=== PATIENT | male | born 1950 | race African-American/Black ===

== ENCOUNTER → 2016-11-24 | Outpatient (CLI) | payer BC ==
--- NOTE | ~2016-11-24 | MR103 ---
[facility] A Service of [facility] & [facility] RADIOLOGY TEXT RESULTS PATIENT: DIDI WILKINS JR [facility] [birth year] UNIT #: [id number] AGE: [address]: BASSAM PALOMO MD SEX: M ORDER DR: [id number] [facility] [address] [place], [place] [address] [id number] O MR#: [id number] #: [id number] NAME: DIDI WILKINS : 1950 SEX: M STUDY DATE/TIME: 11/24/2016 11:37 UNIT: [facility] ROOM: STUDY DESCRIPTION: MR Knee Wo Contrast Lt Attending Physician: Bassam Palomo M.D. Referring Physician: Bassam Palomo M.D. Ordering Physician: Bassam Palomo M.D. Primary Care Physician: Bassam Palomo M.D. MRI CENTER REPORT This report is preliminary unless electronic signature is present. EXAM MRI of the left knee without contrast HISTORY 66-year-old male complains of posterior knee pain x1 year. Feels popping while walking. Increasing pain going up and down stairs. COMPARISON Left knee films 06/2010 TECHNIQUE Multiplanar multiecho imaging was performed of the left knee utilizing a high field magnet dedicated protocol. FINDINGS Examination demonstrates moderately advanced tricompartment osteoarthritis of the knee with marginal osteophytes. Marrow edema noted along the medial tibial plateau and medial femoral condyle corresponding to extensive full-thickness cartilage loss medial compartment. Prominent subarticular osteophyte noted along the posterior aspect lateral femoral condyle. Mild chondromalacia noted lateral compartment. In the patellofemoral compartment, there is moderate grade chondromalacia predominately along the median ridge and extending towards the lateral patellar facet. Trochlear cartilage also demonstrates high-grade chondromalacia lateral femoral trochlea. No normal-appearing medial meniscus identified compatible with an extensive degenerative tear of the medial meniscus. Horizontal cleavage tear noted within the midbody segment and posterior horn of the meniscus. I suspect there has been at least a partial medial meniscectomy accounting for the substantial loss of meniscal volume. In the lateral compartment, the meniscus demonstrates myxoid degeneration but no defined tear. The anterior cruciate ligament is poorly identified and may represent severe STS. [facility] A Service of [facility] & [facility] RADIOLOGY TEXT RESULTS PATIENT: DIDI WILKINS JR LOCATION: [facility] : 48 UNIT #: [id number] AGE: [address]: BASSAM PALOMO MD SEX: M ORDER DR: mucinous degeneration or possibly a chronic tear. Given the lack of additional findings of ACL insufficiency. I suspect this just represents severe mucinous degeneration. Posterior cruciate ligament appears intact. Medial collateral ligament and lateral collateral ligament complex appears normal. Extensor mechanism unremarkable. IMPRESSION 1. Moderately advanced tricompartment osteoarthritis of the knee with medial compartment predominance with extensive full-thickness cartilage loss medial compartment and associated subchondral edema. 2. Morphologic changes in the medial meniscus compatible with a partial meniscectomy with probable horizontal cleavage tear within the midbody segment and posterior horn remnant. 3. 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 Dictated by... Altaf Alberto M.D. THIS IS AN ELECTRONICALLY VERIFIED REPORT Altaf Alberto M.D. at 11/26/2016 5:11 PM MARILIN/lulú TD: 11/24/2016 18:56 JOB #: [id number] MRI CENTER REPORT Page 1 of 1 COPY
== END | disposition home or self-care (01) ==
LOC: CMRI 10:49
DX: M54.5 Low back pain (principal); M17.12 Unilateral primary osteoarthritis, left knee; R60.0 Localized edema
CPT/HCPCS: 73721